=== PATIENT | female | born 1945 | race Caucasian/White ===

== ENCOUNTER → 2016-11-13 | Outpatient (CLI) | payer OTHER ==
[~2016-11-13] MED LIST: ASPIRIN; DYAZIDE 37.5/251 CAP; NEXIUM; SYNTHROID; ZOCOR
--- NOTE | ~2016-11-13 | BD1 ---
[facility] A Service of [facility] & [facility] RADIOLOGY TEXT RESULTS PATIENT: JEFF BURNHAM LOCATION: [facility] : 49 UNIT #: [id number] AGE: [address]: Augusta Dumont MD SEX: F ORDER DR: [id number] [address] [address] [id number] O MR#: [id number] Acc #: [id number] NAME: JEFF BURNHAM : 1945 SEX: F STUDY DATE/TIME: 11/13/2016 9:23 UNIT: SRAD ROOM: STUDY DESCRIPTION: Dexa Bone Dens 1+ Site Attending Physician: Augusta Dumont M.D. Referring Physician: Augusta Dumont M.D. Ordering Physician: Augusta Dumont M.D. Primary Care Physician: Augusta Dumont M.D. MEDICAL IMAGING REPORT This report is preliminary unless electronic signature is present. EXAM DXA scan, 11/13/2016. HISTORY Status post menopause with no hormone replacement therapy. Osteopenia. Arthritis. Thyroid medication, Levothyroxine, use for 10 years. Smoking history for 20 years. FINDINGS Bone mineral density in the lumbar spine from L1 through L4 is 1.077 g/cm2 which is 0.9 standard deviations below the mean when compared to the young adult reference population which is within the range of normal. This is 0.4 standard deviations below the mean when compared to the age-matched population. Compared with 09/12/2014, there has been an increase in bone mineral density in the lumbar spine of 2.2%. Bone mineral density in the left femoral neck was 0.834 g/cm2 which is 1.5 standard deviations below the mean when compared to the young adult reference population which is characteristic of osteopenia. This is 0.6 standard deviations below the mean when compared to the age-matched population. Compared with 09/12/2014 there has been a decrease in bone mineral density in the left hip of 0.1%. Bone mineral density in the right femoral neck was 0.842 g/cm2 which is 1.4 standard deviations below the mean when compared to the young adult reference population which is characteristic of osteopenia. This is 0.5 standard deviations below the mean when compared to the age-matched population. Compared with 09/12/2014, there has been an increase in bone mineral density in the right hip of 2.9%. IMPRESSION Bone mineral density in the lumbar spine within the range of normal and within the hips bilaterally characteristic of osteopenia. Compared with 09/12/2014, there has been an increase in bone mineral density in the lumbar spine and right hip and a decrease in bone mineral density in the left hip. [facility] A Service of [facility] RADIOLOGY TEXT RESULTS PATIENT: JEFF BURNHAM LOCATION: [facility] : 49 UNIT #: [id number] AGE: [address]: Augusta Dumont MD SEX: F ORDER DR: Dictated by... Vishnu Givens M.D. THIS IS AN ELECTRONICALLY VERIFIED REPORT Vishnu Givens M.D. at 11/14/2016 7:28 AM CATIE/sadie TD: 11/13/2016 12:28 JOB #: [id number] MEDICAL IMAGING REPORT Page 1 of 1
== END | disposition home or self-care (01) ==
LOC: SRAD 09:10
DX: M81.0 Age-related osteoporosis without current pathological fracture (principal); M85.89 Other specified disorders of bone density and structure, multiple sites; Z78.0 Asymptomatic menopausal state
CPT/HCPCS: 77080